=== PATIENT | female | born 1995 | race Caucasian/White ===

== ENCOUNTER 2025-02-06 12:20 | Emergency (ER) | payer OTHER, SELFPAY ==
[2025-02-06 12:23] VITALS: BP 164/100; PULSE 80; TEMP 36.8; O2SAT 100; BMI 43.3
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
== END 2025-02-06 12:51 | disposition home or self-care (01) ==
LOC: ER 12:38
PROVIDERS: Emergency Provider Emergency Medicine; PCP Family Medicine
DX: L03.114 Cellulitis of left upper limb (principal); L55.9 Sunburn, unspecified
CPT/HCPCS: 99283